=== PATIENT | female | born 1970 | race Hispanic/Latino ===

== ENCOUNTER 2017-08-18 17:34 | Inpatient (IN) | payer MEDICARE, OTHER ==
[~2017-08-18] VITALS: Ht 157.5 cm; Wt 69.9 kg
[~2017-08-18 17:34] MED LIST: CARVEDILOL12.5 MG PO; CRESTOR20 MG PO; FOLIC ACID1 MG PO; HYDRALAZINE HCL25 MG PO; ISOSORBIDE MONO20 MG PO; LIPITOR10 MG PO; LISINOPRIL10 MG PO; NIFEDIPINE ER30 M1 PO; NIFEDIPINE10 MG PO; PANTOPRAZOLE SO40 MG PO; PLAVIX75 MG PO; RAMIPRIL5 MG PO; RENVELA0.8 GM PO; SENSIPAR30 MG PO; TEMAZEPAM15 MG PO; TERAZOSIN HCL1 MG PO; TYLENOL WITH C1 EACH PO; VITAMIN B-121000 MC2 SL
[2017-08-18] MEDS ORDERED: DEXTROSE 50% SYRINGE 50 ML IV STA (17:35)
[2017-08-18] MEDS ORDERED: ALBUTEROL SULF 0.083% NEB SOLN 3 ML NEB NEB STA ×2 (17:35→18:03)
[2017-08-18] MEDS ORDERED: INSULIN REGULAR, HUMAN 100 UNIT/1 ML 3ML VIAL IV ONE (17:45)
[2017-08-18] MEDS ORDERED: CALCIUM GLUCONATE 10% INJ 13.95 MEQ in SODIUM CHLORIDE 0.9% 100 ML 100 ML IV ONE (17:45)
[2017-08-18] MEDS ORDERED: ATROPINE SULFATE 1 MG/ML VIAL IV ONE (17:45)
[2017-08-18] MEDS ORDERED: SOD POLYSTYRENE SULFONATE SUSP 15 GM/60 ML BTL PO ONE (17:45)
[2017-08-18] MEDS ORDERED: SODIUM BICARBONATE 8.4% IV ONE (18:00)
[2017-08-18] MEDS ORDERED: DEXTROSE 5% IV ONE (18:00)
[2017-08-18 18:07] LABS: BASOPHILS % 0.4 % (0.0-1.0); EOSINOPHILS # (AUTO) 0.2 (0.0-0.4); EOSINOPHILS % 2.4 % (0.0-6.0); HEMOGLOBIN 9.6 g/dL (12.0-16.0); LYMPHOCYTES # (AUTO) 1.1 (1.0-3.2); LYMPHOCYTES % 15.9 % (18.0-39.1); MEAN CORPUSCULAR HEMOGLOBIN 30.8 pg (28-32); MEAN CORPUSCULAR HGB CONC 33.1 g/dL (31-35); MEAN CORPUSCULAR VOLUME 92.9 fL (81-99); MONOCYTES # (AUTO) 0.5 (0.2-0.8); MONOCYTES % 7.2 % (4.4-11.3); NEUTROPHILS % 73.5 % (38.7-80.0); PLATELET COUNT 141 x10e3/uL (140-360); RED BLOOD COUNT 3.12 x10e6/uL (3.6-5.1); RED CELL DISTRIBUTION WIDTH 16.4 % (11.7-14.4)
[2017-08-18] MEDS ORDERED: SODIUM BICARBONATE 8.4% 150 ML in DEXTROSE 5% 1000ML 1,000 ML IV ONE (18:15)
[2017-08-18 18:22] LABS: INR 1.09; PROTHROMBIN TIME 14.7 seconds (11.9-14.5)
[2017-08-18 18:23] LABS: PARTIAL THROMBOPLASTIN TIME 32.4 seconds (23.8-35.5)
[2017-08-18 18:29] LABS: ALANINE AMINOTRANSFERASE 21 IU/L (0-55); ALBUMIN 3.4 g/dL (3.5-5.0); ALBUMIN/GLOBULIN RATIO 0.9 (0.8-2.0); ALKALINE PHOSPHATASE 185 IU/L (40-150); ANION GAP 29.5 mmol/L (8-16); BLOOD UREA NITROGEN 109 mg/dL (7-26); BUN/CREATININE RATIO 9 (6-25); CALCIUM 8.4 mg/dL (8.4-10.2); CARBON DIOXIDE 14 mmol/L (22-29); CHLORIDE 102 mmol/L (98-107); CREATINE KINASE 131 IU/L (29-168); CREATININE, SERUM 12.08 mg/dL (0.57-1.11); EST GLOMERULAR FILTRATION RATE 3 ML/MIN (60-); GLUCOSE 101 mg/dL (74-118); SODIUM 139 mmol/L (136-145)
[2017-08-18 18:36] LABS: TROPONIN I 0.084 ng/mL (0-0.300)
[2017-08-18 18:38] LABS: POTASSIUM 6.5 mmol/L (3.5-5.1)
[2017-08-18] MEDS ORDERED: CLONIDINE HCL0.3 MG PO (18:58)
[2017-08-18] MEDS ORDERED: MINOXIDIL2.5 MG PO (18:58)
[2017-08-18] MEDS ORDERED: RENAGEL800 MG PO ×2 (18:58)
[2017-08-18] MEDS ORDERED: SODIUM CHLORIDE FLUSH 10 ML SYR INJ PRN (19:30)
[2017-08-18] MEDS ORDERED: ONDANSETRON HCL INJ 2 MG/ML VIAL IV PRN (19:30)
--- NOTE | 2017-08-18 20:05 | Diagnostic Imaging Report ---
Examination: Single AP view of the chest. COMPARISON: None. INDICATION: Syncope DISCUSSION: Lines/tubes: Dialysis catheter with tip overlying the low right atrium Lungs: Central pulmonary venous congestion. Lower lung opacity. Pleura: Moderate left effusion. Heart and mediastinum: The heart and the mediastinum are unremarkable. Bones and soft tissues: No acute bony abnormalities. IMPRESSION: Pulmonary venous congestion. Moderate left effusion with adjacent probable atelectasis. Signed by: Dr. Kaiden Stack M.D. on 08/18/2017 8:02 PM
[2017-08-18] MEDS ORDERED: SODIUM CHLORIDE 0.9% 1000ML 2,000 ML ONE (22:28)
[2017-08-18] MEDS ORDERED: ACETAMINOPHEN 325 MG TAB PO PRN (23:15)
[2017-08-19] MEDS ORDERED: ALBUTEROL SULF 0.083% NEB SOLN 3 ML NEB NEB STA (01:11)
[2017-08-19] MEDS ORDERED: IPRATROPIUM BROMIDE 0.02% 2.5 ML NEB NEB ONE (01:15)
[2017-08-19] MEDS ORDERED: ALPRAZOLAM 0.25 MG TAB PO PRN (02:45)
[2017-08-19 04:28] LABS: BASOPHILS % 0.4 % (0.0-1.0); EOSINOPHILS # (AUTO) 0.1 (0.0-0.4); EOSINOPHILS % 0.7 % (0.0-6.0); HEMATOCRIT 28.9 % (34.2-44.1); HEMOGLOBIN 9.8 g/dL (12.0-16.0); LYMPHOCYTES # (AUTO) 0.5 (1.0-3.2); LYMPHOCYTES % 5.6 % (18.0-39.1); MEAN CORPUSCULAR HEMOGLOBIN 30.5 pg (28-32); MEAN CORPUSCULAR HGB CONC 33.9 g/dL (31-35); MONOCYTES # (AUTO) 0.6 (0.2-0.8); NEUTROPHILS # (AUTO) 8.3 (2.1-6.9); NEUTROPHILS % 86.9 % (38.7-80.0); PLATELET COUNT 139 x10e3/uL (140-360); RED BLOOD COUNT 3.21 x10e6/uL (3.6-5.1); RED CELL DISTRIBUTION WIDTH 16.1 % (11.7-14.4)
[2017-08-19] MEDS: TRAMADOL HCL 50 MG TAB PO PRN ×2 (04:33→20:50)
[2017-08-19 04:43] LABS: ALBUMIN 3.6 g/dL (3.5-5.0); ALBUMIN/GLOBULIN RATIO 0.9 (0.8-2.0); ANION GAP 23.4 mmol/L (8-16); CALCIUM 8.7 mg/dL (8.4-10.2); CREATININE, SERUM 7.91 mg/dL (0.57-1.11); POTASSIUM 3.4 mmol/L (3.5-5.1)
[2017-08-19] MEDS ORDERED: CLONIDINE HCL 0.2 MG TAB PO PRN (06:45)
[2017-08-19] MEDS ORDERED: DEXTROSE 50% SYRINGE 50 ML IV PRN (09:15)
[2017-08-19 09:20] VITALS: BP 171/104
[2017-08-19 10:18] LABS: CREATINE KINASE MB 16.7 ng/mL (0.00-5.00); TROPONIN I 0.779 ng/mL (0-0.300)
[2017-08-19] MEDS: NIFEDIPINE CR 30 MG TAB PO SCH ×2 (10:21→20:50)
[2017-08-19] MEDS ORDERED: HYDRALAZINE HCL 20 MG/ML VIAL IV PRN (11:15)
--- NOTE | 2017-08-19 11:56 | Consultation ---
DATE OF CONSULTATION: August 19, 2017 REASON FOR CONSULTATION: Hyperkalemia. Thank you for asking me to participate in Ms. Hughes' care. This is a 44-year-old female with a history of end-stage renal disease, missed her dialysis while helping her who had diarrhea from Kayexalate apparently. Subsequently, was supposed to dialyze again yesterday to make up for the missed dialysis on August 17, 2017. She got faint and was woken up by her , and brought to the ER. She was hypotensive initially. Normally, she runs very labile and off and on uncontrolled blood pressures. Potassium was found to be 6.5, and was medically treated. Subsequently, emergency dialysis was done to help with this. The heart rate was in the 30s on admission. We fixed the potassium. She is now due for regular dialysis. Denies any dyspnea. She did have some anxiety problems, which are better. Troponin was elevated. CK-MB was 16.7. Currently, she denies any chest pain. Denies any trouble breathing. Chest x-ray is showing some pulmonary venous congestion. PAST HISTORY: ESRD, hypertension, coronary artery disease, history of ischemia of the finger after which AV fistula was ligated, secondary hyperparathyroidism, intermittent hypokalemia, hypertension that is often labile. HOME MEDICATIONS 1. Lipitor 10 mg a day. 2. Clonidine 0.1 mg b.i.d. 3. Plavix 75 mg daily. 4. Isosorbide mononitrate 20 mg daily. 5. Minoxidil 2.5 mg b.i.d. 6. Nifedipine 30 mg a day. 7. Renagel 4000 mg b.i.d. FAMILY HISTORY: Diabetes. REVIEW OF SYSTEMS CONSTITUTIONAL: No fever or chills. RESPIRATORY: Denying dyspnea. CARDIAC: Denying angina or palpitations. MUSCULOSKELETAL: No arthralgias. NEURO: Denies headaches or seizures. PSYCH: Intermittent anxiety problems. The rest of the review is negative. PHYSICAL EXAMINATION GENERAL: Laying in bed in no distress. Appears sleepy. VITALS: Temperature 98.2, pulse 98, blood pressure 183/97. HEENT: Atraumatic. NECK: JVD to the distal clavicle. Right IJ tunneled catheter. CHEST: Crackles at the bases. CARDIAC: Normal heart tones. Question of S4. ABDOMEN: Benign. EXTREMITIES: No definite edema. NEURO: Appears to be alert and appropriate. Potassium is down to 3.4 after dialysis and medical treatment. Sodium 141, serum CO2 22, creatinine 8, BUN 64, glucose 214. Albumin 3.6. Hemoglobin is 9.6. The pH on the venous side was 7.20 and pCO2 39. ASSESSMENT 1. End-stage renal disease. 2. Fluid overload. 3. Hyperkalemia that was life threatening, and now improving. PLAN: Emergency dialysis is done. Will get back to regular dialysis. Avoid missing treatments. Keep fluid restricted. Will follow along. Job#: [id number] ELSY
[2017-08-19 12:23] VITALS: BP 188/121
[2017-08-19] MEDS: INSULIN REGULAR, HUMAN 100 UNIT/1 ML 3ML VIAL SQ SCH ×3 (13:04→20:39)
[2017-08-19] MEDS: SEVELAMER CARBONATE 800 MG TAB PO SCH ×2 (13:11→17:33)
[2017-08-19] MEDS: CLOPIDOGREL BISULFATE 75 MG TAB PO SCH (13:11)
--- NOTE | 2017-08-19 15:32 | Consultation ---
DATE OF CONSULTATION: August 19, 2017 REASON FOR CONSULTATION: Severe hypertension, elevated troponin, bradycardia, resolved. HISTORY: This is one of several admissions for this unfortunate 47-year-old lady who is known with end-stage renal disease. She is known also to have very severe accelerated, severe malignant hypertension. She does have history of poor compliance in addition to coronary artery disease status post stenting of ostial circumflex coronary artery. Patient came to this institution after missing dialysis. She is supposed to have her dialysis on Thursday but she did not go there. Patient came to the emergency room on Thursday. She was lethargic and bradycardiac with one episode of AV dissociation. Her blood pressure was very low. Her potassium was only at 6.5, and she was acidotic and very ill. She had urgent hemodialysis and with that her potassium improved. Her heart rate became 100 and she became extremely hypertensive with blood pressure of 210/115. Troponin was elevated at 0.9 MB at 16. Cardiac consultation is obtained. Patient denied having angina. Yesterday, she was lethargic, very weak and unable to do anything. Currently, she is feeling better. She is having some shortness of breath but no chest pain, no angina. Patient claims she was taking care of her . She slept on Thursday and that is why she did not go to dialysis. On Thursday she woke up very ill and she came to the emergency room and she had the above mentioned problems. REVIEW OF SYSTEMS: Was done to all system and will be summarized for clarity. CARDIAC: No angina. Usual shortness of breath on exertion, easy fatigability. Some orthopnea and paroxysmal nocturnal dyspnea between dialysis. No syncope or presyncope. PULMONARY: Cough. No hemoptysis. GI: Poor appetite. No melena. : Still making scant, a little bit of urine. NEUROMUSCULAR: Aches and pain. NEUROLOGIC: Headache and in the past she had TIAs. HEENT: Remarkable for decreased vision. HOME MEDICATIONS: A long list includin. Nifedipine 90 mg twice a day. 2. Clonidine 0.3 mg twice a day. 3. Minoxidil 5 mg twice a day. 4. Lipitor 20 mg a day. 5. Plavix 75 mg a day. 6. Ismo 30 mg a day. 7. Renvela. PAST MEDICAL HISTORY: 1. End-stage renal disease on hemodialysis. 2. Malignant accelerated hypertension. 3. Hyperlipidemia. 4. Coronary artery disease status post PCI and stenting of circumflex coronary artery. 5. Repeated pleural effusion. 6. Hyperlipidemia. 7. Cholecystectomy. 8. AV fistula surgery. 9. Laser eye surgeries. FAMILY HISTORY: Strongly positive for hypertension, diabetes mellitus, end-stage renal disease with several members of the family with the same problem. PHYSICAL EXAMINATION GENERAL: A chronically ill lady. VITAL SIGNS: Height of 5 feet, 2 inches, weight 120 pounds. Blood pressure 210/110. Heart rate of 110. Respiratory rate of 20. HEENT: Decreased vision. NECK: No elevation of jugular venous pulsation. CHEST: Bilateral crackles. HEART: PMI 5th left intercostal space. Normal 1st and 2nd heart sounds. ABDOMEN: Soft. EXTREMITIES: No cyanosis. No clubbing. No edema. Fistula is noted in place. NEUROLOGIC: Neck is supple. No gross deficits. LABORATORY DATA: Admission potassium was at 6.5, BUN of 109, creatinine of 12, bicarbonate 14, most recent lab showed sodium 141. Potassium 3.4. BUN of 64, creatinine 7.9. Bicarb of 22. CK total of 180. MB of 16.7. Troponin 0.8. BNP of 2515. White blood cell count of 9.6, hemoglobin 9.8. Hematocrit 29%. Platelet count of 139,000. IMPRESSION 1. Bradyarrhythmia, severe hypertension, hyperkalemia, electrolyte imbalance improved after dialysis. 2. Accelerated malignant hypertension. 3. Known coronary artery disease status post percutaneous coronary intervention. 4. Poor compliance. 5. Elevated troponin. 6. End-stage renal disease on dialysis. 7. Debility and several other health problems. RECOMMENDATIONS: Resuming dialysis. Resuming Plavix, nifedipine, clonidine and minoxidil and Ismo treatment. Will observe patient's progression with you and depending on her course, further steps to be done. Job#: [id number]
[2017-08-19 18:51] LABS: CREATINE KINASE MB 17.7 ng/mL (0.00-5.00)
[2017-08-19 18:53] LABS: TROPONIN I 2.927 ng/mL (0-0.300)
[2017-08-19] MEDS: ISOSORBIDE MONONITRATE 30 MG TAB CR PO SCH (20:50)
[2017-08-19] MEDS: TERAZOSIN HCL 1 MG CAP PO SCH (20:50)
[2017-08-19] MEDS ORDERED: ISOSORBIDE MONONITRATE 20 MG TAB PO SCH (21:00)
[2017-08-20] VITALS (7 sets, daily range): BP systolic 106–149; BP diastolic 64–85
[2017-08-20] MEDS: TRAMADOL HCL 50 MG TAB PO PRN (03:25)
[2017-08-20] MEDS: INSULIN REGULAR, HUMAN 100 UNIT/1 ML 3ML VIAL SQ SCH ×4 (07:30→21:00)
--- NOTE | 2017-08-20 08:07 | History and Physical ---
PRIMARY CARE PHYSICIAN: Dr. Diaz GANG SAWYER: Dr. Valdez CHIEF COMPLAINT: Passing out. HISTORY OF PRESENT ILLNESS: This is a 47-year-old woman with a history of end-stage renal disease, on hemodialysis, now stating that she passed out. Patient stated that she was revived by her . No shaking or loss of urine at that time. She was brought to the hospital for further evaluation and management. PAST MEDICAL HISTORY: End-stage renal disease, on hemodialysis, hypertension, diabetes mellitus, type 2, coronary artery disease, status post 2 stents in October 2016. 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 ALLERGIES: PER ELECTRONIC MEDICAL RECORDS. FAMILY HISTORY/SOCIAL HISTORY: Patient is . She has 2 children. No alcohol, illicits or cigarettes. MEDICATIONS: Per electronic medical records. REVIEW OF SYSTEMS: Denies any dizziness or chest pain. PHYSICAL EXAMINATION VITAL SIGNS: Reviewed. GENERAL: A tired-appearing woman resting in bed. HEENT: Anicteric. Pupils respond to light. No oral lesions. CARDIOVASCULAR: Normal S1 and S2. LUNGS: Moderate breath sounds. ABDOMEN: Soft, nontender and nondistended. EXTREMITIES: She has left hand 4th digit absent. She has right chest catheter in place. SKIN: Dry. PSYCHIATRIC: Normal affect. NEUROLOGICAL: Alert and oriented times 3. Moving all extremities. LABS: Reviewed. MEDICATIONS: Reviewed. ASSESSMENT AND PLAN: This is a 47-year-old female with: 1. Presyncope/bradyarrhythmia: Cardiology on board. Heart rate is now better controlled. Will monitor closely while she is hospitalized. Defer to cardiology. 2. Coronary artery disease with history of stent in October 2016: We will continue Plavix, nitrate and calcium channel daphney, baby aspirin. 3. End-stage renal disease, on hemodialysis/hyperkalemia: Dialysis per nephrology. Potassium improved today. 4. Uremic encephalopathy: BUN is better today at 64. Patient is doing better. 5. Diabetes mellitus, type 2: Obtain hemoglobin A1c and lipid panel. DOCTOR SAID THIS IS AN ERROR. Job#: [id number] ELSY
[2017-08-20] MEDS: CLOPIDOGREL BISULFATE 75 MG TAB PO SCH (09:01)
[2017-08-20] MEDS: NIFEDIPINE CR 30 MG TAB PO SCH ×2 (09:01→21:33)
[2017-08-20] MEDS: SEVELAMER CARBONATE 800 MG TAB PO SCH ×3 (09:02→17:00)
[2017-08-20] MEDS ORDERED: EPOETIN ALFA 10000 UNIT/ML VIAL SC NR (12:00)
[2017-08-20] MEDS: TERAZOSIN HCL 1 MG CAP PO SCH (21:32)
[2017-08-20] MEDS: ISOSORBIDE MONONITRATE 30 MG TAB CR PO SCH (21:33)
[2017-08-21 00:34] VITALS: BP 107/63
[2017-08-21 04:00] VITALS: BP 108/59
[2017-08-21 08:00] VITALS: BP 111/56
[2017-08-21] MEDS: SEVELAMER CARBONATE 800 MG TAB PO SCH (08:00)
[2017-08-21] MEDS: NIFEDIPINE CR 30 MG TAB PO SCH (09:00)
== END 2017-08-21 10:30 | disposition home or self-care (01) | DRG 308 ==
LOC: ER 17:34 → ERHOLD 20:24 → MED/SURG2 08-19 22:43
PROVIDERS: ADMIT Internal Medicine; ATTEND Internal Medicine
PROC: 5A1D70Z Performance of Urinary Filtration, Intermittent, Less than 6 Hours Per Day (ICD-10-PCS; principal; 2017-08-18)
DX: R00.1 Bradycardia, unspecified (principal); N18.6 End stage renal disease; I12.0 Hypertensive chronic kidney disease with stage 5 chronic kidney disease or end stage renal disease; E11.22 Type 2 diabetes mellitus with diabetic chronic kidney disease; I95.9 Hypotension, unspecified; E87.5 Hyperkalemia; Z99.2 Dependence on renal dialysis; Z91.15 Patient's noncompliance with renal dialysis; I25.10 Atherosclerotic heart disease of native coronary artery without angina pectoris; Z95.5 Presence of coronary angioplasty implant and graft; E87.70 Fluid overload, unspecified; D64.9 Anemia, unspecified; R53.81 Other malaise; F41.9 Anxiety disorder, unspecified; E78.5 Hyperlipidemia, unspecified; R74.8 Abnormal levels of other serum enzymes; Z79.02 Long term (current) use of antithrombotics/antiplatelets; Z51.5 Encounter for palliative care
CPT/HCPCS: 36415; 71010; 80053; 82550; 82553; 82948; 83880; 84484; 84702; 85025; 85610; 85730; 87340; 93005; 99285; J0461; J0610; J7030; J7070

== ENCOUNTER 2017-12-06 10:26 | Emergency (ER) | payer MEDICARE, OTHER ==
[~2017-12-06] VITALS: Ht 157.5 cm; Wt 69.9 kg
[~2017-12-06 10:26] MED LIST changes: +CLONIDINE HCL0.3 MG PO; +MINOXIDIL2.5 MG PO; +RENAGEL800 MG PO
--- OUTSIDE RECORDS SUMMARY | 2017-12-06 10:28 | XMS REPORT ---
Author Author [facility] Address Unknown Phone Unavailable Care Team Providers Care Phone Representative Name Role Phone SELENE DENNEY Unavailable Unavailable BLANCHE DAMON Unavailable Unavailable Problems This patient has no known problems. Allergies, Adverse Reactions, Alerts This patient has no known allergies or adverse reactions. Medications This patient has no known medications. Results Test Description Test Time Test Comments Text Results Atomic Results Result Comments AB SPECIFICITY CLASS I 2016-10-28 15:24:00 DATE OF SERUM (BEAKER) (test faad=4778) [id number] SERUM # (BEAKER) (test jubf=4533) [id number] AB SPECIFICITY CLASS I (BEAKER) (test ervc=4586) AB SPECIFICITY CLASS [id number] 15:24:00* Test Item Value Reference Range Comments DATE OF SERUM (BEAKER) (test pjjm=8733) [id number] SERUM # (BEAKER) (test erls=3503) 37660 AB SPECIFICITY CLASS II (BEAKER) (test jbpy=8626) See Scanned Report CRSMTCH [id number] 12:58:00* Test Item Value Reference Range Comments CRSMTCH LRD RESULT (BEAKER) (test kpfo=7933) See Scanned Report [facility]SMT[facility] T+B [id number] 12:58:00* Test Item Value Reference Range Comments [facility]SMTCH T+B CELLS RESULT (BEAKER) (test duqc=5802) See Scanned Report FLOW PRA CLASS I AND [id number] 15:59:00* Test Item Value Reference Range Comments DATE OF SERUM (BEAKER) (test mkmv=1710) [id number] SERUM # (BEAKER) (test yhfp=0025) 93600 FLOW PRA CLASS I AND II (test uebp=1293) See Scanned Report [facility]SMTCH T+B [id number] 09:30:00* Test Item Value Reference Range Comments CRSMTCH T+B CELLS RESULT (BEAKER) (test nsmi=3780) See Scanned Report [facility]SMTCH FLOW [id number] 09:30:00* Test Item Value Reference Range Comments CRSMTCH FLOW ADDL RESULT (BEAKER) (test fipm=3055) See Scanned Report [facility]SMTCH [id number] 09:30:00* Test Item Value Reference Range Comments CRSMTCH LRD RESULT (BEAKER) (test jfot=9629) See Scanned Report [facility]SMTCH [id number] 09:18:00* Test Item Value Reference Range Comments CRSMTCH FLOW RESULT (BEAKER) (test exhq=5366) See Scanned Report [facility]SMTCH [id number] 09:18:00* Test Item Value Reference Range Comments CRSMTCH LRD RESULT (BEAKER) (test jaco=7601) See Scanned Report [facility]SMTCH T+B [id number] 09:17:00* Test Item Value Reference Range Comments [facility]SMTCH T+B CELLS RESULT (BEAKER) (test ewja=3522) See Scanned Report CRSMTCH FLOW [id number] 09:17:00* Test Item Value Reference Range Comments CRSMTCH FLOW ADDL RESULT (BEAKER) (test laya=9207) See Scanned Report CHEST SINGLE (PORTABLE) [place] [address] Patient Name: AMY STOUT MR #: [id number] : 1970 Age/Sex: 47/F Req #: [id number] Adm Physician: SELENE DENNEY MD Ordered by: JENNY QUIGLEY MD Report #: [id number] Location: [facility] Room/Bed: [place] [address] _ Procedure: [id number] DX/CHEST SINGLE (PORTABLE) Exam Date: Exam Time: REPORT STATUS: Signed Examination: Single AP view of the chest. COMPARISON: None. INDICATION: Syncope DISCUSSION: Lines/tubes: Dialysis catheter with tip overlying the low right atrium Lungs: Central pulmonary venous congestion. Lower lung opacity. Pleura: Moderate left effusion. Heart and mediastinum: The heart and the mediastinum are unremarkable. Bones and soft tissues: No acute bony abnormalities. IMPRESSION: Pulmonary venous congestion. Moderate left effusion with adjacent probable atelectasis. Signed by: Dr. Live Wharton M.D. on 08/18/2017 8:02 PM Dictated By: LIVE WHARTON MD 01 Transcribed By: RISSA on 08/18/172001 COPY TO: JENNY QUIGLEY MD
--- OUTSIDE RECORDS SUMMARY | 2017-12-06 10:28 | XMS REPORT | Clinical Summary ---
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 Disp. Refills Start End Date Status Date NIFEdipine (ADALAT CC) 60 Take 60 mg by mouth 3 Active MG 24 hr tablet (three) times daily . terazosin (HYTRIN) 5 MG Take 2 mg by mouth Active capsule nightly . ewjbgjvy-zxni-ook-folic Take 1 tablet by mouth Active acid daily. (QRVNVVTUIMNC-AXMQ-SOHDRN LS-FOLIC ACID) 3,500-18-0.4 unit-mg-mg Chew calcium acetate (PHOSLO) Take 667 mg by mouth 3 Active 667 mg capsule (three) times daily with meals 4 every meals & 2 w/ snacks . folic acid (FOLVITE) 1 MG Take 1 mg by mouth daily. Active tablet calcitriol (ROCALTROL) Take 0.25 mcg by mouth Active 0.25 MCG capsule daily. magnesium oxide (MAG-OX) Take 400 mg by mouth i Active 400 mg tablet tab every other day . furosemide (LASIX) 40 MG Take 40 mg by mouth 2 Active tablet (two) times daily. hydrALAZINE (APRESOLINE) Take 50 mg by mouth 2 Active 50 MG tabletIndications: (two) times daily . ESRD on hemodialysis (HCC) aspirin 81 MG chewable Take 81 mg by mouth Active tablet daily. traZODone (DESYREL) 50 MG Take 50 mg by mouth Active tablet nightly. cinacalcet (SENSIPAR) 30 Take 30 mg by mouth Active MG tablet daily. carvedilol (COREG) 12.5 Take 12.5 mg by mouth 2 Active MG tablet (two) times daily with breakfast and dinner. atorvastatin (LIPITOR) 20 Take 20 mg by mouth Active MG tablet daily. temazepam (RESTORIL) 15 Take 15 mg by mouth every Active mg capsule night as needed for Sleep. clopidogrel (PLAVIX) 75 Take 75 mg by mouth Active mg tablet daily. cyanocobalamin (VITAMIN Take 1,000 mcg by mouth Active B-12) 1000 MCG tablet daily. sevelamer (RENVELA) 800 Take 3,200 mg by mouth 3 Active mg tablet (three) times daily with meals. Active Problems Patient Care Coordination Note Dr. Rene Diaz, PCP, Problem Noted Date ESRD on hemodialysis (HCC) 03/28/2015 Patient awaiting renal transplant 03/28/2015 DM (diabetes mellitus) (HCC) 03/28/2015 HTN (hypertension) 03/28/2015 Encounters Date Type Specialty Care Team Description 09/19/2017 Orders Only Transplant Eloina Goode RN Patient awaiting renal transplant (Primary Dx) 06/08/2017 Abstract Transplant Ivette Luna 06/08/2017 Telephone Transplant Ivette Luna Appointment 02/06/2017 Orders Only Transplant ProviderMajo MD 02/04/2017 Telephone Transplant Ivette Luna Appointment after 12/05/2016 Family History Medical History Relation Name Comments Unremarkable Brother Unremarkable Brother Unremarkable Brother Diabetes Father Hypertension Father Kidney disease Father On dialysis at time of Osteoporosis Mother Heart disease Paternal Per patient heart disease was a trait in the Grandfather family. Unremarkable Son Unremarkable Son Relation Name Status Comments Brother Alive Brother Alive Brother Alive Father Brain aneurism (Age 57) Mother Alive Paternal Grandfather Son Alive Son Alive Social History Tobacco Use Types Packs/Day Years Used Date Never Smoker Smokeless Tobacco: Never Used Alcohol Use Drinks/Week oz/Week Comments No Sex Assigned at Date Recorded Not on file Last Filed Vital Signs Not on file Plan of Treatment Health Maintenance Due Date Last Done Comments INFLUENZA VACCINE 05/31/2018 Results * Carotid doppler bilateral (12/23/2016) after 12/05/2016
--- OUTSIDE RECORDS SUMMARY | 2017-12-06 10:28 | XMS REPORT | Clinical Summary ---
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 Disp. Refills Start End Date Status Date NIFEdipine XL (PROCARDIA Take 90 mg by mouth Active XL) 90 MG 24 hr tablet daily. minoxidil (LONITEN) 10 MG Take 10 mg by mouth 2 Active tablet (two) times a day. clopidogrel (PLAVIX) 75 Take 75 mg by mouth Active mg tablet daily. cinacalcet (SENSIPAR) 30 Take 30 mg by mouth Active MG tablet daily. atorvastatin (LIPITOR) 20 Take 20 mg by mouth Active MG tablet daily. Default OP ins isosorbide mononitrate Take 20 mg by mouth Active (ISMO,MONOKET) 20 MG daily. tablet pantoprazole (PROTONIX) Take 40 mg by mouth. Active 40 MG EC tablet sevelamer carbonate Take 0.8 g by mouth with Active (RENVELA) 0.8 gram powder snacks. in packet acetaminophen-codeine Take 1 tablet by mouth 40 tablet 0 03/10/20 (TYLENOL WITH CODEINE #3) every 6 (six) hours as 17 17 300-30 mg per tablet needed for moderate pain for up to 40 days. Active Problems Problem Noted Date End stage renal disease 03/06/2017 Overview: Added automatically from request for surgery [id number] Dependence on hemodialysis 03/06/2017 Overview: Added automatically from request for surgery [id number] Encounters Date Type Specialty Care Team Description 03/10/2017 [facility] General Surgery Siva Ramirez MD Complications due to Encounter renal dialysis device, implant, and graft, initial encounter; End stage renal disease; Dependence on hemodialysis 03/10/2017 Hospital Radiology Siva Ramirez MD Encounter 03/10/2017 Anesthesia General Surgery Fernanda Ferris MD 03/10/2017 Procedure Pass General Surgery 03/10/2017 Surgery General Surgery Siva Ramirez MD Left upper extremity ligation of arteriovenous fistula, and right IJ tunneled dialysis catheter insertion 03/06/2017 Prep for Cardiovascular Siva Ramirez MD Complications due to Surgery renal dialysis device, implant, and graft, initial encounter (Primary Dx); End stage renal disease; Dependence on hemodialysis 03/06/2017 Orders Only Cardiovascular Siva Ramirez MD Complications due to renal dialysis device, implant, and graft, initial encounter (Primary Dx); End stage renal disease; Dependence on hemodialysis after 12/05/2016 Social History Tobacco Use Types Packs/Day Years Used Date Never Smoker Alcohol Use Drinks/Week oz/Week Comments No Sex Assigned at Date Recorded Not on file Last Filed Vital Signs Vital Sign Reading Time Taken Blood Pressure 119/56 03/10/2017 10:17 AM CDT Pulse 100 03/10/2017 10:17 AM CDT Temperature 36.9 C (98.5 F) 03/10/2017 9:43 AM CDT Respiratory Rate 16 03/10/2017 10:17 AM CDT Oxygen Saturation 97% 03/10/2017 10:17 AM CDT Inhaled Oxygen - - Concentration Weight 64.7 kg (142 lb 11.2 oz) 03/10/2017 5:53 AM CDT Height 157.5 cm (5' 2") 03/10/2017 5:53 AM CDT Body Mass Index 26.1 03/10/2017 5:53 AM CDT Plan of Treatment Health Maintenance Due Date Last Done Comments PAP SMEAR 1992 INFLUENZA VACCINE 03/31/2018 Implants Implanted Type Area Retail Merchandiser Device Expiration Model / Identifier Date Serial / Lot Catheter Dialysis Glidepath Implantabl Right: BARD PERIPHERAL 2017 [id number] / [id number] Symmetric Tip - e Infusion Subclavian VASCULAR / [id number] Ports or [id number] Implanted: Qty: 1 on 03/10/2017 by Siva Waterman MD s Procedures Procedure Name Priority Date/Time Associated Diagnosis Comments [place] AN ELECTIVE Routine 03/10/2017 SUPRAGLOTTIC AIRWAY 8:02 AM CDT Procedure Note - Ivy Mike MD - 03/10/2017 8:02 AM CDT Airway Date/Time: 03/10/2017 7:53 AM Performed by: IVY MIKE Authorized by: IVY MIKE Location: OR Urgency: Elective Difficult Airway: No Anesthesio logist: IVY MIKE Preoxygena zayra with 100% O2: Yes C-spine Precaution s Maintained Throughout : Yes Mask Ventilatio n: Easy mask Final Airway Type: Supraglott ic airway Final LMA: Unique LMA Size: 4 Number of Attempts at Approach: 1 CV HYBRID OR FLUOROSCOPY Routine 03/10/2017 Results for this 7:50 AM CDT procedure are in the results section. after 12/05/2016 Results * Hybrid or fluoroscopy (03/10/2017 7:50 AM) Narrative See operative report for the same day * XR Chest 1 Vw Portable (03/10/2017 6:39 AM) Specimen Performing Laboratory [facility] [address] [place] [address] Narrative EXAMINATION:XR CHEST 1 VW PORTABLE CLINICAL HISTORY: Pre-Op COMPARISON:10/19/2014 IMPRESSION: Cardiac silhouette is enlarged. There is increased opacity in the left base suggesting combination of volume loss, infiltration and probable small left pleural effusion. Right lung is clear. There is no pneumothorax. Visualized osseous structures are intact. [facility]-[id number] Procedure Note Interface, Radiology Results Incoming - 03/10/2017 6:51 AM CDT EXAMINATION: XR CHEST 1 VW PORTABLE CLINICAL HISTORY: Pre-Op COMPARISON: 10/19/2014 IMPRESSION: Cardiac silhouette is enlarged. There is increased opacity in the left base suggesting combination of volume loss, infiltration and probable small left pleural effusion. Right lung is clear. There is no pneumothorax. Visualized osseous structures are intact. [facility]-[id number] * Estimated GFR (03/10/2017 6:24 AM) Component Value Ref Range GFR Non Af Amer 10 (A) mL/min/1.73 m2 GFR Af Amer 12 (A) mL/min/1.73 m2 Comment: Chronic kidney disease: <60 mL/min/1.73m2 Kidney failure: <15 mL/min/1.73m2 The estimated GFR is calculated from the IDMS-traceable Modification of Diet in Renal Disease Equation. The accuracy of the calculation is poor when the creatinine is normal. Calculated values >90 mL/min/1.73m2 are not reported. This equation has not been validated in children (<18 years), women, the elderly (>70 years), or ethnic groups other than Caucasians and Americans. Specimen Performing Laboratory Plasma specimen [facility] [address] [place] [address] * Partial thromboplastin time, activated (03/10/2017 6:24 AM) Component Value Ref Range PTT 34.3 23.0 - 36.0 sec Comment: PTT therapeutic range for unfractionated heparin is 61.0-112.0 seconds which corresponds to Anti-Xa 0.3-0.7 U/ml. Note: Change in Panic Value The PTT Panic Value is changing from 110 sec. to 100 sec. due to new instrumentation and reagents. Correlation studies have been performed to validate this result. Specimen Performing Laboratory Blood [facility] [address] [place] [address] * Prothrombin time with INR (03/10/2017 6:24 AM) Component Value Ref Range Prothrombin time 14.5 12.0 - 15.0 sec INR 1.12 0.92 - 1.12 Comment: For patients on anticoagulant therapy, reference ranges below: Indication: INR Value Treatment of Venous Thrombosis, 2.0-3.0 pulmonary emboli, or prophylaxis of a venous thrombosis, or systemic emboli. High dose, high risk patients 3.0-4.5 with mechanical valves. NOTE: INR values over 3.0 are sometimes associated with gastrointestinal hemorrhage, especially values over 4.0. Specimen Performing Laboratory Blood [facility] [address] [address] * CBC with platelet and differential (03/10/2017 6:24 AM) Component Value Ref Range WBC 5.3 4.2 - 11.0 k/uL RBC 3.33 (L) 4.04 - 5.86 m/uL HGB 9.9 (L) 11.5 - 15.3 g/dL HCT 30.8 (L) 34.0 - 45.0 % MCV 92.5 80.0 - 98.0 fL MCH 29.7 27.0 - 34.0 pg MCHC 32.1 31.5 - 36.5 g/dL RDW - SD 61.7 (H) 37.0 - 51.0 fL MPV 12.1 (H) 7.4 - 10.4 fL Platelet count 169 150 - 400 k/uL Nucleated RBC 0.00 /100 WBC Neutrophils 78.5 (H) 36.0 - 66.0 % Lymphocytes 8.2 (L) 24.0 - 44.0 % Monocytes 9.3 (H) 0.0 - 6.0 % Eosinophils 3.2 0.0 - 6.0 % Basophils 0.6 0.0 - 1.2 % Immature granulocytes 0.2 0.0 - 1.0 % Specimen Performing Laboratory Blood [facility] [address] [place] [address] * Basic metabolic panel (03/10/2017 6:24 AM) Component Value Ref Range Sodium 139 135 - 150 mEq/L Potassium 4.0 3.5 - 5.0 mEq/L Chloride 99 (L) 100 - 109 mEq/L CO2 29 24 - 32 mmol/L Anion gap 11 7 - 15 mEq/L Comment: Starting from November , anion gap calculation no longer incorporates potassium. Please note the change. BUN 39 (H) 7 - 18 mg/dL Creatinine 4.7 (H) 0.8 - 1.5 mg/dL Glucose 62 (L) 65 - 100 mg/dL Calcium 8.2 (L) 8.6 - 10.7 mg/dL Specimen Performing Laboratory Plasma specimen [facility] [address] [place] [address] * ECG 12 lead (03/10/2017 6:14 AM) Component Value Ref Range Ventricular rate 101 Atrial rate 101 [place] interval 170 QRSD interval 82 QT interval 354 QTC interval 459 P axis 1 32 QRS axis 1 56 T wave axis 192 EKG impression Sinus tachycardia-ST & T wave abnormality, consider inferolateral ischemia-Abnormal ECG-In automated comparison with ECG of 19-OCT-2014 11:54,-Criteria for Septal infarct are no longer present-T wave inversion less evident in Inferior leads- Specimen Performing Laboratory [facility] [place] [address] [place] [address] after 12/05/2016 Insurance Payer Benefit Subscriber ID Type Phone Address Plan / Group MEDICARE MEDICARE xxxxxxxxxx Medicare [place], [place] PART A AND B [facility] xxxxxxxxx HMO/PPO THCARE CHOICE/CHO ICE +
[2017-12-06] MEDS ORDERED: LORAZEPAM 1 MG TAB PO ONE (10:45)
[2017-12-06 10:57] LABS: BASOPHILS % 0.7 % (0.0-1.0); EOSINOPHILS # (AUTO) 0.1 (0.0-0.4); HEMATOCRIT 34.9 % (34.2-44.1); HEMOGLOBIN 11.8 g/dL (12.0-16.0); LYMPHOCYTES # (AUTO) 0.5 (1.0-3.2); LYMPHOCYTES % 10.6 % (18.0-39.1); MEAN CORPUSCULAR HEMOGLOBIN 31.1 pg (28-32); MEAN CORPUSCULAR HGB CONC 33.8 g/dL (31-35); MEAN CORPUSCULAR VOLUME 92.1 fL (81-99); MONOCYTES # (AUTO) 0.5 (0.2-0.8); MONOCYTES % 11.1 % (4.4-11.3); NEUTROPHILS # (AUTO) 3.2 (2.1-6.9); NEUTROPHILS % 74.4 % (38.7-80.0); PLATELET COUNT 206 x10e3/uL (140-360); RED BLOOD COUNT 3.79 x10e6/uL (3.6-5.1); RED CELL DISTRIBUTION WIDTH 16.5 % (11.7-14.4)
[2017-12-06 11:16] LABS: ANION GAP 25.6 mmol/L (8-16); CALCIUM 9.9 mg/dL (8.4-10.2); CREATININE, SERUM 9.33 mg/dL (0.57-1.11); POTASSIUM 4.6 mmol/L (3.5-5.1)
--- NOTE | 2017-12-06 11:27 | Diagnostic Imaging Report ---
EXAMINATION: CHEST SINGLE (PORTABLE) INDICATION: \S\SOB \[id number] \[id number] COMPARISON: Chest radiograph from 08/18/2017 FINDINGS: AP view Lines/tubes: Dialysis catheter with tip overlying the low right atrium Lungs: Central pulmonary venous congestion. Lower lung opacity. Pleura: Moderate left effusion, unchanged. No right pleural effusion. No pneumothorax. Heart and mediastinum: The heart and the mediastinum are unremarkable. Bones and soft tissues: No acute bony abnormalities. Degenerative changes in the thoracic spine. IMPRESSION: Pulmonary venous congestion. Moderate left effusion with adjacent probable atelectasis, already present on 08/18/2017. This may be recurrent or chronic pleural effusion. Signed by: Dr. Lindy Hahn M.D. on 12/06/2017 11:24 AM
== END 2017-12-06 12:44 | disposition home or self-care (01) ==
LOC: ER 10:26
DX: F41.1 Generalized anxiety disorder (principal); F43.0 Acute stress reaction; N18.6 End stage renal disease; Z99.2 Dependence on renal dialysis; Z88.8 Allergy status to other drugs, medicaments and biological substances; Z91.012 Allergy to eggs
CPT/HCPCS: 36415; 71045; 80048; 83880; 85025; 93005; 99284